=== PATIENT | female | born 1970 | race Caucasian/White ===

== ENCOUNTER 2019-12-07 03:12 | Emergency (ER) | payer BC ==
[2019-12-07 03:19] VITALS: BP 139/91; BMI 26.9
[2019-12-07] MEDS ORDERED: ACETAMINOPHEN 500 MG TABLET (FP) PO ONE (03:39)
[2019-12-07] MEDS ORDERED: morphine CARPU-JECT 4 MG/1 ML DISP.SYRIN IVPUSH ONE (03:40)
[2019-12-07] MEDS ORDERED: SODIUM CHLORIDE 1,000 ML IV ONE (03:40)
--- NOTE | 2019-12-07 03:41 | PDOC ---
History of Present Illness - General Chief Complaint: Pain Stated Complaint: ABD CRAMPING, NAUSEA, FEVER Time Seen by Provider: 12/07/19 03:33 History Source: Patient Exam Limitations: No Limitations - History of Present Illness Initial Comments: 12/07/19 03:42 This is a 49-year-old female who comes in complaining of 3 days of abdominal pain progressive worse over the last 24 hours with some associated nausea. Patient has a history significant for section abdominoplasty and gallbladder removal in the past. Patient denies any history of bowel obstruction in the past. Patient has had no bowel movement x2 days and is complaining of some abdominal distention. Patient said that she had a fever of 102 prior to coming in. Allergies: as per nursing notes Past Medical History: none Social history: Lives with family. No smoking. No alcohol. No illicit drugs. Surgical history: None General: No fevers or chills, no weakness, no weight loss HEENT: No change in vision. No sore throat,. No ear pain CardioVascular: no chest discomfort. No shortness of breath Respiratory:No cough, or wheezing. Gastrointestinal: + nausea, no vomiting, no diarrhea + constipation, No rectal bleeding Genitourinary: No dysuria, hematuria, or frequency Musculoskeletal: No joint or muscle pain or swelling Neurologic: No headache, vertigo, dizziness or loss of consciousness Psychiatric: nor depression Skin: No rashes or easy bruising Endocrine: no increased thirst or abnormal weight change Allergic: no skin or latex allergy All other systems reviewed and normal Exam: General: Well-nourished well-developed individual, no acute distress HEENT: Throat: Normal, tonsils normal, no erythema or exudate Neck: Supple, no meningeal signs, no lymphadenopathy Eyes::Pupils equal reactive and round, extraocular motion intact Chest: Nontender to palpation Cardiac: S1-S2 normal, regular rate and rhythm, no murmurs rubs or gallops Respiratory: Lungs clear to auscultation bilateral Abdomen: Soft, moderately distended with decreased bowel sounds patient is diffusely tender over the lower abdomen with some guarding but no rebound. Extremities: Warm, dry, no cyanosis, clubbing, or edema Skin: No rashes Neuro: Alert and oriented x3, CN II - XII intact, nonfocal exam with normal strength, normal sensation, normal reflexes, normal gait, Psych: Normal mood and affect Assessment and plan: This is a 49-year-old female with abdominal pain and no BM x2 days. Patient is febrile to 102 work-up initiated including CBC, comp, blood cultures, lactic acid, CAT scan of abdomen and pelvis. 06:30 Patient work-up is negative for any acute processes. Patient has normal white count with no left shift. Patient's chemistries are normal. Patient's CAT scan shows no acute intra-abdominal pathology. Patient feels better after some IV fluids Tylenol and pain medication. Patient given hyoscyamine also here in the ED and I will send her home with a bottle of mag citrate as there most likely is a constipation component to it. Past History - Past Medical History Allergies/Adverse Reactions: Allergies Allergy/AdvReac Type Severity Reaction Status Date / Time No Known Allergies Allergy Unverified 12/07/19 03:14 Home Medications: Ambulatory Orders Hyoscyamine Odt [Levsin Odt -] 0.125 mg PO DAILY #7 tab.rapdis 12/07/19 Nitrofurantoin Macrocrystal [Macrodantin] 100 mg PO BID #10 capsule 12/07/19 COPD: No - Surgical History Cholecystectomy: Yes - Psycho Social/Smoking Cessation Hx Smoking History: Never smoked *Physical Exam - Vital Signs Last Vital Signs Temp Pulse Resp BP Pulse Ox 102.1 F H 124 H 16 139/91 98 12/07/19 03:15 12/07/19 03:15 12/07/19 03:15 12/07/19 03:15 12/07/19 03:15 ED Treatment Course - LABORATORY CBC & Chemistry Diagram: 12/07/19 04:00 12/07/19 04:00 Discharge - Discharge Information Problems reviewed: Yes Clinical Impression/Diagnosis: Fever, Abdominal pain, Cystitis Condition: Stable Disposition: HOME - Admission No - Additional Discharge Information Prescriptions: Hyoscyamine Odt [Levsin Odt -] 0.125 mg PO DAILY #7 tab.rapdis Nitrofurantoin Macrocrystal [Macrodantin] 100 mg PO BID #10 capsule - Follow up/Referral Referrals: Lin Ferrera [Primary Care Provider] - - Patient Discharge Instructions Additional Instructions: For the urinary tract infection take Macrobid 1 tablet twice a day for 5 days. For abdominal cramping you can take hyoscyamine 1 tablet a day as needed. For the constipation drink the mag citrate. Tylenol or Motrin as needed for pain or fevers Return to the emergency department immediately with ANY new, persistent or worsening symptoms. Continue any medications as previously prescribed by your physician. You should follow up with your primary doctor as soon as possible regarding today's emergency department visit. . Please make sure your doctor reviews the results of your emergency evaluation. Thank you for coming to the Emergency Department today for your care. It was a pleasure to see you today. Please note that your evaluation is INCOMPLETE until you follow-up with your doctor. - Post Discharge Activity
[2019-12-07] MEDS ORDERED: ACETAMINOPHEN INJECTION 100 ML IVPB ONE (03:42)
[2019-12-07] MEDS ORDERED: morphine SULFATE 4 MG/ML VIAL ONE (03:42)
[2019-12-07] MEDS ORDERED: ACETAMINOPHEN 1000 MG/100 ML VIAL (NON FORMULARY) IVPB ONE (03:42)
[2019-12-07] MEDS ORDERED: ONDANSETRON 4 MG/2 ML VIAL IVPB ONE (03:47)
[2019-12-07] MEDS ORDERED: ONDANSETRON 4 MG/2 ML VIAL ONE (03:59)
[2019-12-07 05:04] LABS: WHITE BLOOD COUNT 8.8 K/mm3 (4.0-10.0)
[2019-12-07 05:06] LABS: BASO % 0.3 % (0-2.0); EOS % 0.2 % (0-4.5); HEMATOCRIT 33.9 % (32.4-45.2); HEMOGLOBIN 11.5 GM/dL (10.7-15.3); LYMPH % 13.8 % (8-40); MCH 31.9 pg (25.7-33.7); MCHC 33.9 g/dl (32.0-36.0); MEAN PLT VOLUME 8.4 fl (7.5-11.1); NEUT % 78.7 % (42.8-82.8); PLATELET COUNT 274 K/MM3 (134-434); RBC 3.61 M/mm3 (3.60-5.2); RDW 13.3 % (11.6-15.6)
[2019-12-07 05:15] LABS: EPI CELLS 7.3 /HPF (0-5/HPF); HYALINE CASTS 7 /lpf (0-8); PH,URINE 7.5 (5.0-8.0); URINE APPEARANCE CLEAR; URINE BACTERIA 109.4 /hpf (NEGATIVE); URINE BILIRUBIN NEGATIVE (NEGATIVE); URINE COLOR YELLOW; URINE GLUCOSE (UA) NEGATIVE (NEGATIVE); URINE KETONE NEGATIVE (NEGATIVE); URINE LEUK ESTERASE 1+ (NEGATIVE); URINE NITRITE NEGATIVE (NEGATIVE); URINE PROTEIN NEGATIVE (NEGATIVE); URINE RBC 4 /hpf (0-4); URINE UROBILINOGEN 0.2 mg/dL (0.2-1.0); URINE WBC 15 /hpf (0-5)
[2019-12-07 05:27] LABS: ALBUMIN 3.9 g/dl (3.4-5.0); BILIRUBIN,TOTAL 0.3 mg/dL (0.2-1); BLOOD UREA NITROGEN 11.6 mg/dL (7-18); CALCIUM 8.7 mg/dL (8.5-10.1); CREATININE 0.8 mg/dL (0.55-1.3); POTASSIUM 3.6 mmol/L (3.5-5.1); TOT PROT 7.3 g/dl (6.4-8.2)
[2019-12-07 05:43] VITALS: TEMP 98.6
[2019-12-07 05:49] VITALS: PULSE 93
[2019-12-07] MEDS ORDERED: HYOSCYAMINE SULFATE 0.125 MG *ODT PO ONE (06:20)
[2019-12-07] MEDS ORDERED: HYOSCYAMINE SULFATE 0.125 MG *ODT ONE (06:20)
[2019-12-07] MEDS ORDERED: MAGNESIUM CITRATE 300 ML BOTTLE PO ONE (06:25)
[2019-12-07] MEDS ORDERED: MAGNESIUM CITRATE 300 ML BOTTLE ONE (06:26)
[2019-12-07] MEDS ORDERED: NITROFURANTOIN MACROCRYSTAL 50 MG CAPSULE (FP) PO SCH (06:30)
[2019-12-07] MEDS ORDERED: NITROFURANTOIN MACROCRYSTAL 50 MG CAPSULE (FP) ONE (06:31)
== END 2019-12-07 06:34 | disposition home or self-care (01) ==
LOC: FER 03:12
PROC: 3E033NZ Introduction of Analgesics, Hypnotics, Sedatives into Peripheral Vein, Percutaneous Approach (ICD-10-PCS; principal; 2019-12-07)
PROC: 3E033GC Introduction of Other Therapeutic Substance into Peripheral Vein, Percutaneous Approach (ICD-10-PCS; 2019-12-07)
PROC: 3E033NZ Introduction of Analgesics, Hypnotics, Sedatives into Peripheral Vein, Percutaneous Approach (ICD-10-PCS; 2019-12-07)
DX: R50.9 Fever, unspecified (principal); R10.9 Unspecified abdominal pain; N30.90 Cystitis, unspecified without hematuria
CPT/HCPCS: 36415; 74177-TC; 80053; 81003; 83605; 85025; 87040; 87086; 99283-25; J0131; J7030; Q9967